=== PATIENT | male | born 1970 | race Hispanic/Latino ===

== ENCOUNTER 2020-04-06 12:04 | Emergency (ER) | payer OTHER ==
[2020-04-06] MEDS ORDERED: KETOROLAC TROMETHAMINE 30MG/ML ONE (12:48)
== END 2020-04-06 13:41 ==
LOC: EDH 12:04 → EEVIPCON 12:04 → EDH 13:41
DX: M10.9 Gout, unspecified (principal); F41.9 Anxiety disorder, unspecified; F32.9 Major depressive disorder, single episode, unspecified; E78.00 Pure hypercholesterolemia, unspecified; M19.90 Unspecified osteoarthritis, unspecified site; Z87.891 Personal history of nicotine dependence
CPT/HCPCS: 96372; 99283; J1885